=== PATIENT | male | born 1945 | race African-American/Black ===

== ENCOUNTER 2017-12-12 19:41 | Inpatient (IN) | payer MEDICARE ==
[~2017-12-12 19:41] MED LIST: Atropine Sulfate 1 mg/10 ml Syringe ONE; Calcium Chloride 1 GM/10 ML Abboject SYRINGE ONE; EPINEPHrine 1 MG/10 ML Abboject SYRINGE ONE; ISOVUE-370 76%-LOCM 1 ML ONE; Lidocaine 2% Jelly 5 ML TUBE ONE; Sodium Bicarb 50 MEQ/50 ML Abboject 8.4% SYRINGE ONE
[2017-12-12 20:27] LABS: Base Excess-Venous -1.2 mmol/L (0 (+/- 2.5)); Bicarbonate (HCO3v) 25.6 mmol/L (1.0-85.0); CO2 Tension (PvCO2) 49.4 mmHg (41.0-51.0); Calcium, Ionized 1.16 mmol/L (1.12-1.32); Hemoglobin - Calc 16.6 g/dL (12.0-18.0); Lactate 3.19 mmol/L (0.50-2.20); O2 Tension (PvO2) 22.1 mmHg (35.0-45.0); Potassium 3.6 mmol/L (3.4-4.7); T. Carbon Dioxide 27.2 mmol/L (1.0-85.0); pH (Venous) 7.323 (7.35-7.45); vO2 Saturation-calc 32.7 % (94-98)
[2017-12-12 20:29] LABS: #Eosinphils 0.1 thou/uL (0.0-0.7); #Lymphocytes 2.3 thou/uL (1.20-3.40); #Monocytes 0.8 thou/uL (0.11-0.59); #Neutrophils 8.8 thou/uL (1.40-6.50); %Basophils 0.1 % (0.0-1.0); %Eosinophils 0.8 % (0.0-10.0); %Monocytes 6.8 % (0.0-10.0); %Neutrophils 73.3 % (42.0-75.0); Hemoglobin 14.5 g/dL (14.0-18.0); Mean Corpuscular HGB CONC 32.3 g/dL (32.0-36.0); Mean Corpuscular Hemoglobin 24.5 pg (27.0-31.0); Mean Corpuscular Volume 75.6 fl (80.0-94.0); Mean Platelet Volume 8.8 fL (7.4-10.4); Platelet Count 221 thou/uL (130-400); Red Blood Cell (RBC) Count 5.94 mill/uL (4.70-6.10)
[2017-12-12] MEDS ORDERED: Amiodarone HCl 450 MG, Admixture Fee 1 EACH in Dextrose 5% in Water 250 ML IVPB SCH (20:30)
[2017-12-12 20:36] LABS: PTT 28.2 SEC (22.9-36.1); Prothrombin Time 13.5 SEC (12.0-14.7)
--- NOTE | 2017-12-12 20:38 | RAD ---
SINGLE VIEW OF THE CHEST: 12/12/17 COMPARISON: 11/07/08. HISTORY: Shortness of breath for two hours and dyspnea. FINDINGS: Single view of the chest shows a normal sized cardiomediastinal silhouette. There is no evidence of c onsolidation, mass, or pleural effusion. The bones are unremarkable. IMPRESSION: No evidence of acute cardiopulmonary disease. POS: [facility]
[2017-12-12 20:49] LABS: ALT (SGPT) 22 U/L (8-55); AST (SGOT) 38 U/L (5-34); Albumin 4.1 g/dL (3.4-4.8); Alkaline Phosphatase 141 U/L (40-150); Anion Gap 13 mmol/L (10-20); BUN (Urea Nitrogen) 11 mg/dL (8.4-25.7); Bilirubin, Total 0.3 mg/dL (0.2-1.2); CK (CPK) 218 U/L (30-200); Calc. Creatinine Clearance 0 mL/min (70-130); Calcium 9.4 mg/dL (7.8-10.44); Carbon Dioxide 26 mmol/L (23-31); Chloride 103 mmol/L (98-107); Estimated GFR-MDRD 70; Globulin 3.5 g/dL (2.4-3.5); Glucose 152 mg/dL (83-110); Potassium 3.9 mmol/L (3.5-5.1); Protein, Total 7.6 g/dL (5.8-8.1); Sodium 138 mmol/L (136-145)
[2017-12-12 21:13] LABS: Troponin I 0.029 ng/mL (< 0.028)
[2017-12-12 21:18] LABS: CKMB 11.3 ng/mL (0-6.6)
[2017-12-12] MEDS ORDERED: Acetaminophen 325 MG TAB PO PRN (22:48)
--- NOTE | 2017-12-12 22:57 | CT ---
CTA OF THE CHEST WITH CONTRAST 12/12/17 COMPARISON: None. HISTORY: Shortness of breath that began two hours ago. History of hypertension. TECHNIQUE: Multiple contiguous axial images were obtained in a CTA of the chest with contrast per pulmonary embo lism protocol. 3D oblique MIP reformats and direct coronal reformats were performed. FINDINGS: The pulmonary arteries are well opacified without filling defect to suggest pulmonary emboli. The hea rt is normal in size. No hilar or mediastinal lymphadenopathy are seen. No pneumothorax or pleural effusion are seen. Atelectasis is seen in the right lung base. No focal in filtrates or suspicious pulmonary nodules are identified. The visualized subdiaphragmatic structures are unremarkable. Mild degenerative changes are seen in th e spine. The chest wall soft tissues are unremarkable. Mild degenerative changes are seen in the spin e. The chest wall soft tissues are unremarkable. IMPRESSION: No evidence of pulmonary thromboembolism. POS: [facility]
[2017-12-12 23:25] VITALS: BMI 22.7
[2017-12-12 23:26] VITALS: TEMP 98.8
[2017-12-12 23:49] LABS: Troponin I 0.094 ng/mL (< 0.028)
[2017-12-13 00:48] LABS: Lactic Acid 1.3 mmol/L (0.5-2.2)
[2017-12-13] MEDS ORDERED: risperiDONE 1 MG TAB PO SCH ×2 (02:45→21:00)
[2017-12-13] MEDS ORDERED: Nitroglycerin 0.4 MG TAB (25 Tab Bottle) ONE (02:46)
[2017-12-13 03:09] LABS: Troponin I 0.099 ng/mL (< 0.028)
[2017-12-13] MEDS ORDERED: EPINEPHrine 1 MG/10 ML Abboject SYRINGE ONE ×2 (03:25→03:26)
[2017-12-13] MEDS ORDERED: Propofol 1,000 MG/100 ML VIAL IV ONE (04:06)
[2017-12-13 04:37] VITALS: BP 152/78
--- NOTE | 2017-12-13 04:43 | PDOC.EVN ---
Event Note - Event Note Event Note: Code blue heard over the intercom. Upon arrival to room, patient was undergoing CPR and PEA observed. The patient was intubated and code was continued for approximately 40 minutes along with administration of IVF, epinephrine, bicarb, and Atropine at various times. Pt ultimately did not respond and code was called at 0334 12/13/17. Pt's sister was present for the final minutes of the code and discussion was had regarding all events. Attending physician and Sound physician present for code. Rufino Mcdonald DO <Rufino Mcdonald - Last Filed: 12/13/17 04:38> Attending Addendum - Attending Addendum Date/Time: 12/13/17 [id number] I personally evaluated the patient and discussed the management with Dr. Mcdonald I agree with the History, Examination, Assessment and Plan documented above with any addition or exceptions noted below. Patient also received Ca+2 and Mag+2 during the course of the code. Chucky <Yohana Delaney - Last Filed: 12/13/17 04:49>
--- NOTE | 2017-12-13 06:46 | HP ---
HISTORY AND PHYSICAL AND SUMMARY HISTORY OF PRESENT ILLNESS: Please note majority of this history is obtained by talking to Dr. Nazario ER physician and patient's sister at bedside. The patient apparently came to ER with complaints of shortness of breath from last 3 -4 days. This was gradually worsening. On arrival in the ER, patient was found to be tachycardic. The initial EKG was read as ventricular tachycardia at 164 beats per minute at 8:00 p.m. He was given 150 mg of amiodarone IV push which cut the rate to 114 beats per minute and he was placed on amiodarone drip. The patient did not complain of any chest pain or orthopnea. The patient apparently was anxious in the ER. He had dry cough, but no expectoration. Once his heart rate was stabilized, the patient had a CT angio chest done due to shortness of breath and respiratory rates going up to 30s with initial presentation of ventricular tachycardia. CT angio of chest was negative. His initial temperature was 98.8 degrees on arrival. His saturations were 100% on 2 liters nasal cannula in the ER. PAST MEDICAL AND SURGICAL HISTORY: Hypertension, dyslipidemia, schizophrenia, depression, bipolar disorder, recent urinary tract infection, COPD, stress test 15 years ago was negative per sister, he was hospitalized last month at [facility] for low sodium, urinary tract infection and hallucinations. He was hospitalized for nearly 4 days and the later part of October. From there, he was sent to [facility] for 3 more days prior to going home. He lives at [facility] living [facility]. CURRENT MEDICATIONS: The patient is on pravastatin 40 mg p.o. daily, potassium chloride 10 mEq p.o. twice daily, sertraline 50 mg daily, Toprol-XL 50 mg daily , hydroxyzine 50 mg p.o. at bedtime, Risperdal 1 mg p.o. at bedtime. ALLERGIES: No known drug allergies. PERSONAL HISTORY: The patient smokes half pack a day. Does not abuse alcohol or drugs. Lives at assisted living facility in [place]. FAMILY HISTORY: Has a son whom he is not in touch for many years per sister, has 2 sisters Ms. Muñiz and Ms. Gipson who make decisions for him. Has a brother by name Andrea, the older brother of [place] and had acute kidney injury as well. CODE STATUS: FULL. This was discussed with sister. REVIEW OF SYSTEMS: Could not be obtained as patient was in a code when I examined the patient. PHYSICAL EXAMINATION: GENERAL: The patient was a 72-year-old male who had a code blue called at around 2:40 a.m. He went into respiratory arrest per staff taking care of him. VITAL SIGNS: Prior to which, the patient's blood pressure was 160/84 100 per minute, respiratory rate was 20, temperature 98 degrees Fahrenheit, saturating 100% on 2 liters nasal cannula. NECK: Supple. No elevated JVD. Pupils were reacting to light prior to code. CARDIOVASCULAR SYSTEM: S1, S2 heard. Code in progress with pulseless rhythms at present. RESPIRATORY SYSTEM: Air entry 1+ bilateral. Scattered rhonchi plus bilateral. ABDOMEN: Soft, bowel sounds heard. No mass felt. EXTREMITIES: No peripheral edema. No ischemic ulcerations or gangrene. CENTRAL NERVOUS SYSTEM: No gross focal signs seen. The patient was seen moving all 4 extremities prior to CODE being called. PSYCHIATRIC SYSTEM: Could not be ascertained as patient is in a code and active CPR was initiated. Apparently was very anxious prior to CODE. LABORATORY DATA AND X-RAY FINDINGS: Initial EKG showed V-tach at 164 beats per minute with underlying LBBB, this was at 8:00 p.m. A repeat EKG at 8:20 p.m. after 150 mg of amiodarone showed sinus tachycardia at 114 beats per minute. He also had questionable Q-waves in lead II, III, AVF. White count was 12, H and H 14 and 44, platelet count is 221 with 73% neutrophils, MCV was 75. PT and INR 13 and 1.0, PTT 28. Electrolytes: Potassium 3.6, chloride 103, serum bicarbonate 26, BUN 11, creatinine 1.23, glucose 152. Serum lactic acid was 1.3 , calcium 9.4, magnesium 1.9, AST 38, ALT 22, alkaline phosphatase 141, CK level is 218, CK-MB 11.3, troponin I was indeterminate peaking up to 0.09. BNP 304, albumin 4.1. CT angio chest done showed no evidence of PE. There is no cardiomegaly on the CT angio. No pneumothorax or pleural effusion. No focal infiltrates were seen. CLINICAL IMPRESSION AND PLAN AND SUMMARY: The patient went into respiratory arrest around 2:40 a.m. ACLS protocol was initiated. The patient went into asystole as well and CPR was initiated. He was given multiple medications per ACLS protocol. The patient never went into Ventricular fibrillation or Ventricular tachycardia during this entire ACLS protocol and no shock was delivered. He has had nearly 35 minutes of CPR and ACLS protocol done at bedside. He was also intubated. The patient had regained pulse twice, but then went back into pulseless rhythm and CPR was again initiated. He was also given bicarbonate, calcium and magnesium during the code. He was finally declared at 3:35 a.m. I have discussed with the patient's sister, Ms. Muñiz all through the code blue over the phone and in person prior to stopping code blue. Body will be released to family per hospital protocol Primary cause of : 1. ventricular tachycardia 7 hours 2. likely coronary artery disease, 3. acute respiratory failure with hypoxia 7 hours, 4. mild congestive heart failure exacerbation 7 hours, 5. demand ischemia 7 hours. Secondary cause of : chronic obstructive pulmonary disease and underlying schizoaffective disorder. I have informed Ms. Muñiz to let his son know who apparently is in [place], but not in close touch with his father about the patient's . [facility]
[2017-12-13] MEDS ORDERED: Prevnar 13-Val Conj/PF 0.5 ML SYRINGE IM ONE (09:00)
--- NOTE | 2017-12-13 09:54 | RAD ---
PORTABLE SUPINE CHEST: History: Post intubation. Dyspnea. Comparison: 12-12-17 FINDINGS: ET tube has been placed and tip is positioned above the joann. There are diffuse bilateral hazy alveolar infiltrates which have occurred since yesterday's chest x-r ay. No evidence of pneumothorax. POS: [facility]
[2017-12-13] MEDS ORDERED: Succinylcholine Chloride 20 MG/ML 10 ml SYRINGE FS ONE (22:28)
--- NOTE | 2017-12-19 15:29 | EKG ---
Test Reason : STAT Blood Pressure : / mmHG Vent. Rate : 052 BPM Atrial Rate : 000 BPM P-R Int : 000 ms QRS Dur : 172 ms QT Int : 430 ms P-R-T Axes : 000 -70 097 degrees QTc Int : 399 ms Atrial fibrillation with slow ventricular response with premature ventricular or aberrantly conducted complexes Right bundle branch block Left anterior fascicular block Bifascicular block Moderate voltage criteria for LVH, may be normal variant T wave abnormality, consider lateral ischemia or digitalis effect Abnormal ECG When compared with ECG of 12-DEC-2017 20:25, (Unconfirmed) Atrial fibrillation has replaced Sinus rhythm Vent. rate has decreased BY 62 BPM (RBBB and left anterior fascicular block) has replaced Left bundle branch block Confirmed by Elena AUSTIN ([id number]) on 12/19/2017 3:28:44 PM Referred By: LOIS Confirmed By:Elena AUSTIN
== END 2017-12-13 03:35 | disposition expired | DRG 308 ==
LOC: ERS 19:41 → 2NO 21:36 → CCU 12-13 03:27 → 2NO 12-13 03:27
PROVIDERS: ADMIT Internal Medicine; ATTEND Internal Medicine
PROC: 0BH17EZ Insertion of Endotracheal Airway into Trachea, Via Natural or Artificial Opening (ICD-10-PCS; principal; 2017-12-13)
PROC: 5A12012 Performance of Cardiac Output, Single, Manual (ICD-10-PCS; 2017-12-13)
DX: I47.2 Ventricular tachycardia (principal); J96.01 Acute respiratory failure with hypoxia; I24.8 Other forms of acute ischemic heart disease; I46.9 Cardiac arrest, cause unspecified; I11.0 Hypertensive heart disease with heart failure; E78.5 Hyperlipidemia, unspecified; I50.9 Heart failure, unspecified; F20.9 Schizophrenia, unspecified; F31.9 Bipolar disorder, unspecified; J44.9 Chronic obstructive pulmonary disease, unspecified; F17.210 Nicotine dependence, cigarettes, uncomplicated; I25.10 Atherosclerotic heart disease of native coronary artery without angina pectoris; Z79.899 Other long term (current) drug therapy
CPT/HCPCS: 36415; 71045; 71275; 80053; 82330; 82550; 82553; 82803; 83605; 83735; 83880; 84484; 85025; 85610; 85730; 90471; 90670; 92950; 93005; 93010; 94760; 96365; 96366; 96376; 99406; G0009; J0171; J0282; J0461; J2704; J7070